=== PATIENT | male | born 2005 ===

== ENCOUNTER 2024-06-12 17:24 | Emergency (ER) | payer SELFPAY ==
[2024-06-12] MEDS ORDERED: Ketorolac Tromethamine 30 MG (1 mL) VIAL ONE (17:46)
== END 2024-06-12 19:09 | disposition home or self-care (01) ==
LOC: ERS 17:24
DX: M54.2 Cervicalgia (principal); M54.9 Dorsalgia, unspecified; M25.562 Pain in left knee; R51.9 Headache, unspecified; V89.2XXA Person injured in unspecified motor-vehicle accident, traffic, initial encounter
CPT/HCPCS: 70450; 72125; 72128; 72131; J1885